=== PATIENT | female | born 1995 | race Hispanic/Latino ===

== ENCOUNTER 2020-05-03 07:00 | Day surgery (SDC) | payer OTHER, MEDICAID ==
--- NOTE | 2020-04-30 10:33 | NUR ---
MS CASTILLO IS WORKING TIL 4PM, I LEFT MESSAGE WITH SPOUSE ( MARISOL LEÓN ) TO BE ON SUNDAY AT 7AM.
[2020-05-03] VITALS (7 sets, daily range): BP systolic 89–113; BP diastolic 42–63
[~2020-05-03] VITALS: Ht 160 cm; Wt 129.7 kg
[2020-05-03] MEDS ORDERED: MUSCLE RELAXANT PO (07:34)
[2020-05-03] MEDS ORDERED: PROPOFOL 10 MG/ML 20ML VIAL IV ONE ×2 (07:47→08:31)
[2020-05-03] MEDS ORDERED: LIDOCAINE HCL-MPF 2% 5ML VIAL ONE (07:47)
[2020-05-03] MEDS ORDERED: SODIUM CHLORIDE 0.9% 1000ML 1,000 ML IV ONE (07:51)
[2020-05-03] MEDS ORDERED: GLYCOPYRROLATE 1 MG/5 ML SYRINGE ONE (08:34)
== END 2020-05-03 09:05 | disposition home or self-care (01) ==
LOC: DAH 07:00 → ENDO 07:00
PROVIDERS: ATTEND Surgery
DX: K21.9 Gastro-esophageal reflux disease without esophagitis (principal); Z20.828 Contact with and (suspected) exposure to other viral communicable diseases
CPT/HCPCS: 43235; 81025; A4215; A4620; A4657 ×2; C9803; J2704; J3490 ×2; J7030; U0003

== ENCOUNTER → 2020-05-06 | Outpatient (CLI) | payer SELFPAY ==
[~2020-05-06] VITALS: Ht 7.6 cm; Wt 129.8 kg
[~2020-05-06] MED LIST: MUSCLE RELAXANT PO
== END | disposition home or self-care (01) ==
LOC: DTH 09:35
PROVIDERS: ATTEND Surgery
DX: E66.09 Other obesity due to excess calories (principal); E11.9 Type 2 diabetes mellitus without complications
CPT/HCPCS: 97802